=== PATIENT | female | born 1995 | race Two or more races ===

== ENCOUNTER 2018-06-04 23:01 | Emergency (ER) | payer SELFPAY ==
[~2018-06-04] VITALS: Ht 172.7 cm; Wt 118.3 kg
[2018-06-04] MEDS ORDERED: ACETAMINOPHEN 500 MG TABLET ONE (23:58)
[2018-06-04 23:59] LABS: BASOPHILS # (AUTO) 0.03 x10^3/uL (0-0.1); BASOPHILS % (AUTO) 0 % (0-1); EOSINOPHILS # (AUTO) 0.21 x10^3/uL (0-0.4); EOSINOPHILS % (AUTO) 2 % (1-7); LYMPHOCYTES # (AUTO) 1.81 x10^3/uL (1-3.4); LYMPHOCYTES % (AUTO) 16 % (22-44); MD NO; MEAN CORPUSCULAR HEMOGLOBIN 27.7 pg (27.0-34.8); MEAN CORPUSCULAR HGB CONC 33.2 g/dL (32.4-35.8); MEAN CORPUSCULAR VOLUME 83.2 fL (80-100); MEAN PLATELET VOLUME 8.8 fL (7.4-10.4); MONOCYTES # (AUTO) 0.54 x10^3/uL (0.2-0.8); MONOCYTES % (AUTO) 5 % (2-9); NEUTROPHILS # (AUTO) 9.01 x10^3/uL (1.8-6.8); NEUTROPHILS % (AUTO) 78 % (42-75); PLATELET COUNT 304 x10^3/uL (130-400); RED BLOOD COUNT 4.67 x10^6/uL (3.82-5.3); RED CELL DISTRIBUTION WIDTH 15.3 % (9.6-15.2)
[2018-06-05] MEDS ORDERED: SODIUM CHLORIDE 0.9% 1,000ML IVBOLUS ONE
[2018-06-05] MEDS ORDERED: ACETAMINOPHEN 500 MG TABLET PO ONE
[2018-06-05 00:08] LABS: ALANINE AMINOTRANSFERASE 18 U/L (12-78); ALBUMIN 3.1 g/dL (3.4-5.0); ANION GAP 10 mmol/L (5-15); CALCIUM 8.3 mg/dL (8.5-10.1); CHLORIDE 103 mmol/L (98-107); CREATININE 0.51 mg/dL (0.55-1.02)
[2018-06-05 00:08] LABS: CULTURE INDICATED? YES; MICROSCOPIC INDICATED
[2018-06-05 00:11] LABS: ALKALINE PHOSPHATASE 77 U/L (45-117); BILIRUBIN,TOTAL 0.3 mg/dL (0.2-1.0); TOTAL PROTEIN 7.5 g/dL (6.4-8.2)
[2018-06-05 00:44] VITALS: BP 114/48
== END 2018-06-05 01:13 | disposition home or self-care (01) ==
LOC: ED 06-05 00:30
DX: O26.891 Other specified pregnancy related conditions, first trimester (principal); Z3A.12 12 weeks gestation of pregnancy; O23.11 Infections of bladder in pregnancy, first trimester; G44.219 Episodic tension-type headache, not intractable
CPT/HCPCS: 36415; 80053; 81001; 85025; 87086; 99284; J7030

== ENCOUNTER 2018-09-18 13:56 | Emergency (ER) | payer MEDICAID ==
[~2018-09-18] VITALS: Ht 172.7 cm; Wt 125.3 kg
[2018-09-18 14:29] LABS: BASOPHILS # (AUTO) 0.02 x10^3/uL (0-0.1); BASOPHILS % (AUTO) 0 % (0-1); EOSINOPHILS # (AUTO) 0.02 x10^3/uL (0-0.4); EOSINOPHILS % (AUTO) 0 % (1-7); LYMPHOCYTES # (AUTO) 0.87 x10^3/uL (1-3.4); LYMPHOCYTES % (AUTO) 10 % (22-44); MD NO; MEAN CORPUSCULAR HEMOGLOBIN 29.5 pg (27.0-34.8); MEAN CORPUSCULAR HGB CONC 33.8 g/dL (32.4-35.8); MEAN CORPUSCULAR VOLUME 87.1 fL (80-100); MEAN PLATELET VOLUME 8.6 fL (7.4-10.4); MONOCYTES % (AUTO) 2 % (2-9); NEUTROPHILS # (AUTO) 7.55 x10^3/uL (1.8-6.8); NEUTROPHILS % (AUTO) 87 % (42-75); PLATELET COUNT 301 x10^3/uL (130-400); RED BLOOD COUNT 4.41 x10^6/uL (3.82-5.3); RED CELL DISTRIBUTION WIDTH 14.2 % (9.6-15.2)
[2018-09-18] MEDS ORDERED: SODIUM CHLORIDE 0.9% 1,000ML IVBOLUS ONE (14:30)
[2018-09-18] MEDS ORDERED: ONDANSETRON 2MG/ML, 2ML IVPush ONE (14:30)
[2018-09-18 14:38] LABS: ALBUMIN 2.7 g/dL (3.4-5.0); ANION GAP 9 mmol/L (5-15); CALCIUM 7.8 mg/dL (8.5-10.1); CHLORIDE 109 mmol/L (98-107)
[2018-09-18] MEDS ORDERED: ONDANSETRON ODT 4 MG PO ONE (15:00)
[2018-09-18] MEDS ORDERED: PRENATAL VITAMIN (15:05)
[2018-09-18 15:10] LABS: ALBUMIN 2.7 g/dL (3.4-5.0); BILIRUBIN, DIRECT 0.1 mg/dL (0.1-0.2)
[2018-09-18 15:14] LABS: BILIRUBIN,INDIRECT 0.3 mg/dL (0.0-2.0); BILIRUBIN,TOTAL 0.4 mg/dL (0.2-1.0); TOTAL PROTEIN 7.2 g/dL (6.4-8.2)
[2018-09-18 16:28] LABS: MICROSCOPIC NOT IND
[2018-09-18 16:33] LABS: CULTURE INDICATED? NO
[2018-09-18 17:23] VITALS: BP 114/71
== END 2018-09-18 17:25 | disposition home or self-care (01) ==
LOC: ED 14:43
DX: O21.2 Late vomiting of pregnancy (principal); R10.13 Epigastric pain; Z3A.24 24 weeks gestation of pregnancy
CPT/HCPCS: 36415; 80048; 80076; 81003; 82040; 83690; 85025; 99284